=== PATIENT | female | born 1940 ===

== ENCOUNTER 2016-11-02 06:17 | Inpatient (IN) | payer MEDICARE, OTHER ==
[2016-11-02 07:09] LABS: Hematocrit 38 % (35-47); Hemoglobin 12.8 g/dl (12.0-16.0); Mean Corpuscular HGB Conc 34 g/dl (31-36); Mean Corpuscular Hemoglobin 32 pg (27-31); Mean Corpuscular Volume 95 fL (80-97); Mean Platelet Volume 10 um3 (7.4-10.4); Red Blood Count 4.03 10^6/ul (4.0-5.4); Red Cell Distribution Width 14 % (10.5-15); White Blood Count 9.8 10^3/ul (3.5-10.8)
--- NOTE | 2016-11-02 07:22 | RAD ---
INDICATION: Short of breath COMPARISON: None TECHNIQUE: An AP portable view obtained at 0700 hours is submitted. FINDINGS: Bones/Soft Tissues: There are no acute bony findings. Cardiomediastinal: The heart is normal in size. Central pulmonary vessels and interstitium are prominent compatible with moderate vascular congestion.. Lungs: No focal consolidative changes. Given the diffuse essential change, coexistent infiltrates would be difficult to exclude.. Pleura: Small bilateral pleural effusions.. Other: None IMPRESSION: MODERATE VASCULAR CONGESTION.
[2016-11-02] MEDS ORDERED: Albuterol/Ipratropium NEB.SOL* Albuterol 2.5 MG/Ipratropium 0.5 MG 3 ML INH ONE (07:24)
[2016-11-02] MEDS ORDERED: Furosemide IV* 10 MG/ML 10 ML VIAL (100 MG) IV ONE (07:24)
[2016-11-02 07:25] LABS: BUN/Creatinine Ratio 16.9 (8-20); C Reactive Protein 1.45 mg/L (< 5.00); Calcium 9.3 mg/dL (8.6-10.3); EGFR African American 46.3 (>60); Globulin 3.1 g/dL (2-4); Total Bilirubin 0.7 mg/dL (0.2-1.0); Total Protein 7.1 g/dL (6.4-8.9)
[2016-11-02 07:27] LABS: Troponin I 0.01 ng/mL (<0.04)
[2016-11-02 07:55] LABS: TSH (Thyroid Stimulating Horm) 0.73 mcIU/mL (0.34-5.60)
[2016-11-02 08:10] LABS: Urine Bacteria Absent (Absent); Urine Bilirubin Negative (Negative); Urine Glucose Negative (Negative); Urine Nitrite Negative (Negative)
--- NOTE | 2016-11-02 12:26 | ED ---
Dayday Edwards Matthew, scribed for José Jcaobs MD on 11/02/16 at 0720 . Shortness of Breath - HPI Summary HPI Summary: A 75 y/o female presents to the ED with gradually worsening SOB since 2 days ago. Associated symptoms include productive cough, wheezing, inability to sleep , rhinorrhea, sore throat, diaphoresis, and decreased appetite. The patient denies recent travel, rashes, headache, chest pain, palpitations, vomiting, diarrhea, and Abx in the last 6 months. The SOB worsens with the patient lays flat and with exertion. The patient is only able to ambulate a few feet before becoming SOB, and has been this way for the past year. The patient is not on home oxygen. She is on on blood thinner for an irregular rhythm. Hx of HTN. No Hx of asthma, diabetes, or CHF. - History of Current Complaint Chief Complaint: EDShortnessOfBreath Time Seen by Provider: 11/02/16 06:25 Hx Obtained From: Patient Onset/Duration: Gradual Onset, Lasting Days - 2, Still Present Timing: Constant Current Severity: Moderate Dyspnea At: Rest Aggrevating Factors: Movement Alleviating Factors: Oxygen Associated Signs & Symptoms: Cough (Productive), Wheezing, Diaphoresis - Allergy/Home Medications Allergies/Adverse Reactions: Allergies Allergy/AdvReac Type Severity Reaction Status Date / Time No Known Allergies Allergy Verified 11/02/16 06:34 Home Medications: Home Medications Apixaban* [Eliquis*] 5 mg PO BID 11/02/16 [History Confirmed 11/02/16] Metoprolol Tartrate TAB* [Lopressor TAB*] 100 mg PO BID 11/02/16 [History Confirmed 11/02/16] amLODIPine TAB* [Norvasc TAB*] 5 mg PO DAILY 11/02/16 [History Confirmed ] PMH/Surg Hx/FS Hx/Imm Hx Cardiovascular History: Reports: Hx Atrial Fibrillation, Hx Hypertension Infectious Disease History: No Infectious Disease History: Denies: Traveled Outside the [place] in Last 30 Days - Family History Known Family History: Positive: Hypertension Negative: Diabetes - Social History Lives: With Family Alcohol Use: None Hx Substance Use: No Substance Use Type: Reports: None Hx Tobacco Use: No Smoking Status (MU): Never Smoked Tobacco Review of Systems Constitutional: Other - inability to sleep; decreased appetite Positive: Skin Diaphoresis Eyes: Negative Positive: Sore Throat, Nasal Discharge Cardiovascular: Negative Negative: Chest Pain Positive: Shortness Of Breath, Cough - productive , Other - Wheezing Gastrointestinal: Negative Negative: Abdominal Pain, Vomiting, Diarrhea, Nausea Genitourinary: Negative Positive: no symptoms reported Musculoskeletal: Negative Skin: Negative Neurological: Negative Negative: Headache Psychological: Normal All Other Systems Reviewed And Are Negative: Yes Physical Exam - Summary Physical Exam Summary: The patient is ill apperaing, obese, and respiratory distress. The skin is warm and dry w/ decreased skin turgor. HEENT: The head is normocephalic and atraumatic. The pupils are equal and reactive. The conjunctivae are clear and without drainage. Nares are patent and without drainage. Mouth reveals dry mucous membranes and the throat is without erythema and exudate. The external ears are intact. The ear canals are patent and without drainage. The tympanic membranes are intact. There is no sinus tenderness to palpation. Neck is supple with full range of motion and non-tender. There are no carotid bruits. There is no neck vein distension. Respiratory: Chest is non-tender. The patient has diffuse wheezing and rhonchi. She also has rales in the left base. Cardiovascular: Heart is regular rate and irregular rhythm. There is no murmur or rub auscultated. There is pitting edema of the LE and pulses are symmetrical and equal. Abdomen: The abdomen is soft and non-tender. There are normal bowel sounds heard in all four quadrants and there is no organomegaly palpated. Musculoskeletal: There is no back pain noted. Extremities are non-tender with full range of motion. There is good capillary refill. There is no calf tenderness elicited.The patient has pitting edema of the LE. Neurological: Patient is alert and oriented to person, place and time. The patient has symmetrical motor strength in all four extremities. Cranial nerves are grossly intact. Deep tendon reflexes are symmetrical and equal in all four extremities. Psychiatric: The patient has an appropriate affect and does not exhibit any anxiety or depression. Triage Information Reviewed: Yes Vital Signs On Initial Exam: Initial Vitals BP 165/52 11/02/16 06:31 Temp Pulse Resp BP Pulse Ox 97.5 F 58 20 140/50 92 11/02/16 07:14 11/02/16 07:14 11/02/16 07:14 11/02/16 07:14 11/02/16 07:14 Vital Signs Reviewed: Yes Diagnostics - Vital Signs Vital Signs Temp Pulse Resp BP Pulse Ox 11/02/16 07:00 59 24 140/50 91 11/02/16 06:34 97.6 F 63 26 165/52 92 11/02/16 06:32 61 20 91 11/02/16 06:31 165/52 - Laboratory Lab Results: Lab Results 11/02/16 11/02/16 11/02/16 Range/Units 06:55 06:55 06:55 WBC 9.8 (3.5-10.8) 10^3/ul RBC 4.03 (4.0-5.4) 10^6/ul Hgb 12.8 (12.0-16.0) g/dl Hct 38 (35-47) % MCV 95 (80-97) fL MCH 32 H (27-31) pg MCHC 34 (31-36) g/dl RDW 14 (10.5-15) % Plt Count 203 (150-450) 10^3/ul MPV 10 (7.4-10.4) um3 Neut % (Auto) 89.1 H (38-83) % Lymph % (Auto) 6.6 L (25-47) % Sierra % (Auto) 3.8 (1-9) % Eos % (Auto) 0.1 (0-6) % Baso % (Auto) 0.4 (0-2) % Absolute Neuts (auto) 8.7 H (1.5-7.7) 10^3/ul Absolute Lymphs (auto) 0.6 L (1.0-4.8) 10^3/ul Absolute Monos (auto) 0.4 (0-0.8) 10^3/ul Absolute Eos (auto) 0 (0-0.6) 10^3/ul Absolute Basos (auto) 0 (0-0.2) 10^3/ul Absolute Nucleated RBC 0 10^3/ul Nucleated RBC % 0 INR (Anticoag Therapy) 1.74 H (0.89-1.11) APTT 29.3 (26.0-36.3) seconds D-Dimer, Quantitative 517 H (Less Than 230) ng/mL Sodium 142 (133-145) mmol/L Potassium 4.0 (3.5-5.0) mmol/L Chloride 108 (101-111) mmol/L Carbon Dioxide 24 (22-32) mmol/L Anion Gap 10 (2-11) mmol/L BUN 24 (6-24) mg/dL Creatinine 1.42 H (0.51-0.95) mg/dL Est GFR ( Amer) 46.3 (>60) Est GFR (Non-Af Amer) 36.0 (>60) BUN/Creatinine Ratio 16.9 (8-20) Glucose 137 H (70-100) mg/dL Lactic Acid (0.5-2.0) mmol/L Calcium 9.3 (8.6-10.3) mg/dL Magnesium 2.0 (1.9-2.7) mg/dL Total Bilirubin 0.70 (0.2-1.0) mg/dL AST 72 H (13-39) U/L ALT 112 H (7-52) U/L Alkaline Phosphatase 85 (34-104) U/L Total Creatine Kinase 66 (10-223) U/L CK-MB (CK-2) 3.9 (0.6-6.3) ng/mL Troponin I 0.01 (<0.04) ng/mL C-Reactive Protein 1.45 (< 5.00) mg/L B-Natriuretic Peptide ( - 100) pg/mL Total Protein 7.1 (6.4-8.9) g/dL Albumin 4.0 (3.2-5.2) g/dL Globulin 3.1 (2-4) g/dL Albumin/Globulin Ratio 1.3 (1-3) Lipase 10 L (11.0-82.0) U/L Procalcitonin (<0.6) ng/mL TSH 0.73 (0.34-5.60) mcIU/mL Urine Color Urine Appearance Urine pH (5-9) Ur Specific [place] (1.010-1.030) Urine Protein (Negative) Urine Ketones (Negative) Urine Blood (Negative) Urine Nitrate (Negative) Urine Bilirubin (Negative) Urine Urobilinogen (Negative) Ur Leukocyte Esterase (Negative) Urine WBC (Auto) (Absent) Urine RBC (Auto) (Absent) Ur Squamous Epith Cells (Absent) Urine Bacteria (Absent) Hyaline Casts (Absent) Urine Glucose (Negative) 11/02/16 11/02/16 11/02/16 Range/Units 06:55 06:55 06:55 WBC (3.5-10.8) 10^3/ul RBC (4.0-5.4) 10^6/ul Hgb (12.0-16.0) g/dl Hct (35-47) % MCV (80-97) fL MCH (27-31) pg MCHC (31-36) g/dl RDW (10.5-15) % Plt Count (150-450) 10^3/ul MPV (7.4-10.4) um3 Neut % (Auto) (38-83) % Lymph % (Auto) (25-47) % Sierra % (Auto) (1-9) % Eos % (Auto) (0-6) % Baso % (Auto) (0-2) % Absolute Neuts (auto) (1.5-7.7) 10^3/ul Absolute Lymphs (auto) (1.0-4.8) 10^3/ul Absolute Monos (auto) (0-0.8) 10^3/ul Absolute Eos (auto) (0-0.6) 10^3/ul Absolute Basos (auto) (0-0.2) 10^3/ul Absolute Nucleated RBC 10^3/ul Nucleated RBC % INR (Anticoag Therapy) (0.89-1.11) APTT (26.0-36.3) seconds D-Dimer, Quantitative (Less Than 230) ng/mL Sodium (133-145) mmol/L Potassium (3.5-5.0) mmol/L Chloride (101-111) mmol/L Carbon Dioxide (22-32) mmol/L Anion Gap (2-11) mmol/L BUN (6-24) mg/dL Creatinine (0.51-0.95) mg/dL Est GFR ( Amer) (>60) Est GFR (Non-Af Amer) (>60) BUN/Creatinine Ratio (8-20) Glucose (70-100) mg/dL Lactic Acid 1.9 (0.5-2.0) mmol/L Calcium (8.6-10.3) mg/dL Magnesium (1.9-2.7) mg/dL Total Bilirubin (0.2-1.0) mg/dL AST (13-39) U/L ALT (7-52) U/L Alkaline Phosphatase (34-104) U/L Total Creatine Kinase (10-223) U/L CK-MB (CK-2) (0.6-6.3) ng/mL Troponin I (<0.04) ng/mL C-Reactive Protein (< 5.00) mg/L B-Natriuretic Peptide 620 H ( - 100) pg/mL Total Protein (6.4-8.9) g/dL Albumin (3.2-5.2) g/dL Globulin (2-4) g/dL Albumin/Globulin Ratio (1-3) Lipase (11.0-82.0) U/L Procalcitonin < 0.1 (<0.6) ng/mL TSH (0.34-5.60) mcIU/mL Urine Color Urine Appearance Urine pH (5-9) Ur Specific [place] (1.010-1.030) Urine Protein (Negative) Urine Ketones (Negative) Urine Blood (Negative) Urine Nitrate (Negative) Urine Bilirubin (Negative) Urine Urobilinogen (Negative) Ur Leukocyte Esterase (Negative) Urine WBC (Auto) (Absent) Urine RBC (Auto) (Absent) Ur Squamous Epith Cells (Absent) Urine Bacteria (Absent) Hyaline Casts (Absent) Urine Glucose (Negative) 11/02/16 Range/Units 08:00 WBC (3.5-10.8) 10^3/ul RBC (4.0-5.4) 10^6/ul Hgb (12.0-16.0) g/dl Hct (35-47) % MCV (80-97) fL MCH (27-31) pg MCHC (31-36) g/dl RDW (10.5-15) % Plt Count (150-450) 10^3/ul MPV (7.4-10.4) um3 Neut % (Auto) (38-83) % Lymph % (Auto) (25-47) % Sierra % (Auto) (1-9) % Eos % (Auto) (0-6) % Baso % (Auto) (0-2) % Absolute Neuts (auto) (1.5-7.7) 10^3/ul Absolute Lymphs (auto) (1.0-4.8) 10^3/ul Absolute Monos (auto) (0-0.8) 10^3/ul Absolute Eos (auto) (0-0.6) 10^3/ul Absolute Basos (auto) (0-0.2) 10^3/ul Absolute Nucleated RBC 10^3/ul Nucleated RBC % INR (Anticoag Therapy) (0.89-1.11) APTT (26.0-36.3) seconds D-Dimer, Quantitative (Less Than 230) ng/mL Sodium (133-145) mmol/L Potassium (3.5-5.0) mmol/L Chloride (101-111) mmol/L Carbon Dioxide (22-32) mmol/L Anion Gap (2-11) mmol/L BUN (6-24) mg/dL Creatinine (0.51-0.95) mg/dL Est GFR ( Amer) (>60) Est GFR (Non-Af Amer) (>60) BUN/Creatinine Ratio (8-20) Glucose (70-100) mg/dL Lactic Acid (0.5-2.0) mmol/L Calcium (8.6-10.3) mg/dL Magnesium (1.9-2.7) mg/dL Total Bilirubin (0.2-1.0) mg/dL AST (13-39) U/L ALT (7-52) U/L Alkaline Phosphatase (34-104) U/L Total Creatine Kinase (10-223) U/L CK-MB (CK-2) (0.6-6.3) ng/mL Troponin I (<0.04) ng/mL C-Reactive Protein (< 5.00) mg/L B-Natriuretic Peptide ( - 100) pg/mL Total Protein (6.4-8.9) g/dL Albumin (3.2-5.2) g/dL Globulin (2-4) g/dL Albumin/Globulin Ratio (1-3) Lipase (11.0-82.0) U/L Procalcitonin (<0.6) ng/mL TSH (0.34-5.60) mcIU/mL Urine Color Yellow Urine Appearance Clear Urine pH 5.0 (5-9) Ur Specific [place] 1.010 (1.010-1.030) Urine Protein 1+(30 mg/dl) H (Negative) Urine Ketones Negative (Negative) Urine Blood Negative (Negative) Urine Nitrate Negative (Negative) Urine Bilirubin Negative (Negative) Urine Urobilinogen Negative (Negative) Ur Leukocyte Esterase Negative (Negative) Urine WBC (Auto) Absent (Absent) Urine RBC (Auto) Absent (Absent) Ur Squamous Epith Cells Present H (Absent) Urine Bacteria Absent (Absent) Hyaline Casts Present H (Absent) Urine Glucose Negative (Negative) Result Diagrams: 11/02/16 06:55 11/02/16 06:55 Lab Statement: Any lab studies that have been ordered have been reviewed, and results considered in the medical decision making process. - Radiology CXR Xray Interpretation: Positive (See Comments) - IMPRESSION: MODERATE VASCULAR CONGESTION. Radiology Interpretation Completed By: Radiologist - EKG 06:37 Cardiac Rate: Bradycardia - 58 bpm EKG Rhythm: Sinus Bradycardia ST Segment: Non-Specific EKG Interpretation: Normal [place] Course/Dx - Course Assessment/Plan: A 75 y/o female presents to the ED with SOB, orthopnoea, and dyspnea on exertion. The concern was pneumonia, CHF, bronchitis, OR, AFib with RVR. Exam, labs, and CXR were consistent with new onset CHF. The patient was given 80 of Lasix and one breathing treatment. The hospitalist was consulted and agrees to admit the patient. 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 - Diagnoses Differential Diagnosis/HQI/PQRI: Positive: Asthma, Bronchitis, CHF, OR, Pneumonia Provider Diagnoses: Acute dyspnea, Pulmonary edema - Physician Notifications Discussed Care of Patient With: Dr. Marcelo (Hospitalist) at 08:23 -- Notified of patient's history and will admit the patient. Social work consulted. Discharge - Discharge Plan Condition: Stable Disposition: ADMITTED TO [facility] The documentation as recorded by the Dayday carter Matthew accurately reflects the service I personally performed and the decisions made by , José Jacobs MD.
--- NOTE | 2016-11-02 15:48 | HP ---
ADMISSION HISTORY AND PHYSICAL: DATE OF ADMISSION: 11/02/16 PRIMARY CARE PROVIDER: Dr. Montaño in [place]. [employer]LE ETL DEVELOPER: Dr. Theodore. HEALTHCARE PROXY: Oscar, her brother. CODE STATUS: DNR. MOLST filled out. SOURCE OF INFORMATION: History obtained from interview with the patient and discussion with Dr. Theodore. CHIEF COMPLAINT: Shortness of breath. HISTORY OF PRESENT ILLNESS: This is a 75-year-old female, past medical history of diastolic congestive heart failure with preserved ejection fraction, last checked in May of 2015, with associated moderate aortic insufficiency and mitral regurgitation; obstructive sleep apnea, that is untreated; as well as hypertension; diagnosed with new atrial fibrillation approximately 2 weeks prior on the [address] Theodore, had been increasing her metoprolol as an outpatient as well as started her newly on Eliquis. The patient was not entirely compliant with her followup visits; however, was thought to be in very mild CHF prior, thought to be in the setting of rapid rate when she was diagnosed with atrial fibrillation. She found that over the last 2 days, prior to her scheduled followup today with Dr. Theodore, she had increasing dyspnea on exertion, found it difficult to sleep at night. She is still able to walk up from the basement, carry wood to stoke the fire. Last night, she felt increasingly short of breath and she also felt confused as if she heard her brother who does live with her, although he was not speaking to her. She noted cough increasing over 2 weeks, productive of phlegm, with no fevers or chills. No lower extremity edema. Last night, she did experience PND with severe shortness of breath and increasing diaphoresis. This morning, she felt so short of breath that she activated EMS, found it difficult to walk to the ambulance, which was severely decreased exercise tolerance for this patient. She does note she drinks a lot of water and does not adhere to a low- salt diet. In the emergency room, she was thought as been in acute decompensated heart failure exacerbation, received Lasix 80 mg IV once with diuresis of 1150 cc of urine. When seen by this author, she still required 2 L of oxygen to maintain a saturation greater than 89%, although felt much improved since presentation. She denies any associated chest pain, nausea, vomiting, lightheadedness, palpitations during the course of the last several days until current. PAST MEDICAL HISTORY: Includes a recent left retinal artery branch occlusion; new atrial fibrillation, now on Eliquis; diastolic heart failure with preserved ejection fraction, moderate AI, moderate MR; suspected JERRELL; hypertension. MEDICATIONS: Home medications: 1. Metoprolol 100 mg twice daily. 2. Amlodipine 5 mg daily. 3. Eliquis 5 mg twice daily. ALLERGIES: No known drug allergies. FAMILY HISTORY: Brother with atrial fibrillation. SOCIAL HISTORY: No tobacco, alcohol, or illicit's. REVIEW OF SYSTEMS: As per HPI, otherwise all other systems are negative. PHYSICAL EXAMINATION GENERAL: Older than stated age, sitting up in bed, interactive, talks in full sentences. VITAL SIGNS: When seen by this author, 140/47; heart rate 67; respiratory rate is 16; T-max in the emergency room 97.5; 90% on room air, increased to 94% on 2 L. HEENT: Oropharynx is clear. Has dry mucous membranes. Sclerae anicteric. NECK: Nonelevated JVD. No cervical or supraclavicular lymphadenopathy. LUNGS: She has rales in bilateral bases extending up less than a quarter to the apex. HEART: She has an irregularly irregular heart rhythm with a regular heart rate with indiscernible murmur. ABDOMEN: Soft, nontender, and nondistended. Positive bowel sounds. EXTREMITIES: Warm and well-perfused. She has trace lower extremity edema bilaterally. Less than 2-second capillary refill with good skin turgor. NEUROLOGIC: She is alert and oriented x3. Cranial nerves are intact. DIAGNOSTIC STUDIES/LAB DATA: Labs reviewed notable for a creatinine of 1.4. AST 72, ALT 112. BNP 620. Troponin I 0.01. CRP 1.45. TSH 0.73. D-dimer 517. INR 1.74. White blood cell count 9.8, hemoglobin 12.8, platelets 203. Urine is notable for 1+ protein, squamous epithelial cells, and hyaline casts. Chest x-ray, impression: Moderate vascular congestion. EKG: Atrial fibrillation, ventricular rate of 58, normal limit axis, normal R- wave progression, no ST or T-wave changes. ASSESSMENT AND PLAN: This is a 75-year-old female, new diagnosis of atrial fibrillation with associated left retinal artery branch occlusion, now on Eliquis and metoprolol with good rate control, thought to be in mild heart failure exacerbation as an outpatient, not treated with diuretics in preference of rate control first, now presenting with increasing vascular congestion and decompensated diastolic heart failure exacerbation in the setting of new atrial fibrillation, water intake, and dietary noncompliance. 1. Shortness of breath. Suspect diastolic heart failure exacerbation. Remains in atrial fibrillation, although rate controlled. I did discuss her care with Dr. Theodore. The first thought is for cardioversion, although did indicate if still needed after diuresis, he will follow and cardiovert if needed. His preference in terms of diuretics on discharge would be torsemide with the addition of spironolactone. I have discontinued the patient's amlodipine and will start spironolactone tomorrow. She received 80 mg of IV Lasix today. I will hold additional Lasix, dose Lasix IV 40 mg in the morning. Check BMP for potassium as well as renal function. Plan on transthoracic echocardiogram to evaluate cardiac function. We will also check one additional troponin to rule out acute coronary syndrome in the setting of decompensated heart failure. Low suspicion for pulmonary embolism in the setting of Eliquis initiation. 2. Hypertension. Continue metoprolol. Transition amlodipine to spironolactone. 3. Atrial fibrillation, on Eliquis, rate controlled on metoprolol. Continue both. 4. Elevated creatinine, unsure if chronic or acute. Trend while receiving diuretics. I have requested records from Dr. Theodore's office. 5. Social situation. The patient cares for her elderly brother at home, was originally hesitant to be admitted to the hospital, although in consultation with Social Work has agreed to stay. Attention should be paid to early as possible discharge as is standard of care __as__ the patient is anxious to leave to resume the care of her brother. Social service has arranged Adult Protective Services to check in and assure his safety. 6. DVT prophylaxis, with Eliquis. 7. Code status is DNR. MOLST is completed and placed in chart. CC: Dr. Montaño; Dr. Theodore * [id number]/CPS #: [id number] MTDD
[2016-11-02] MEDS: Metoprolol Tartrate TAB* 50 mg PO SCH (20:52)
[2016-11-02] MEDS: Apixaban* 5 MG TAB PO SCH (20:52)
[2016-11-03 06:39] LABS: Hematocrit 36 % (35-47); Hemoglobin 11.9 g/dl (12.0-16.0); Mean Corpuscular HGB Conc 33 g/dl (31-36); Mean Corpuscular Hemoglobin 31 pg (27-31); Mean Corpuscular Volume 94 fL (80-97); Mean Platelet Volume 10 um3 (7.4-10.4); Red Blood Count 3.84 10^6/ul (4.0-5.4); Red Cell Distribution Width 14 % (10.5-15)
[2016-11-03 06:49] LABS: BUN/Creatinine Ratio 17.6 (8-20); Calcium 9.1 mg/dL (8.6-10.3); EGFR African American 46.3 (>60); Potassium 3.5 mmol/L (3.5-5.0)
[2016-11-03] MEDS: Furosemide IV* 10 MG/ML VIAL (40 MG) IV SCH (08:47)
[2016-11-03] MEDS: Apixaban* 5 MG TAB PO SCH ×2 (08:47→22:17)
[2016-11-03] MEDS: Spironolactone TAB* 25 MG PO SCH (08:47)
[2016-11-03] MEDS: Metoprolol Tartrate TAB* 50 mg PO SCH ×2 (11:04→22:17)
--- NOTE | 2016-11-03 13:18 | PN ---
Subjective Date of Service: 11/03/16 Interval History: Patient seen this morning. Says she is feeling improved from yesterday. Breathing and exercise tolerance are improved but not back to baseline. Still requiring O2. Has been urinating quite a bit. No chest pain. Anxious to get home but understands needs to be feeling better in order to take care of her brother. Family History: Unchanged from Admission Social History: Unchanged from Admission Past Medical History: Unchanged from Admission Objective Active Medications: Apixaban (Eliquis*) 5 mg PO BID [facility] Last Admin: 11/03/16 08:47 Dose: 5 mg Furosemide (Lasix Iv*) 40 mg IV DAILY [facility] Last Admin: 11/03/16 08:47 Dose: 40 mg Metoprolol Tartrate (Lopressor Tab*) 100 mg PO BID [facility] Last Admin: 11/03/16 11:04 Dose: 100 mg Spironolactone (Aldactone Tab*) 25 mg PO DAILY [facility] Last Admin: 11/03/16 08:47 Dose: 25 mg Vital Signs 11/02/16 11/02/16 11/02/16 14:47 15:12 19:21 Temperature 97.8 F 98.1 F 98.2 F Pulse Rate 66 70 71 Respiratory 21 18 18 Rate Blood Pressure 147/61 140/56 98/33 (mmHg) O2 Sat by Pulse 94 95 93 Oximetry 11/02/16 11/02/16 11/02/16 19:27 19:34 23:52 Temperature 98.9 F Pulse Rate 61 Respiratory 18 16 Rate Blood Pressure 110/40 105/43 (mmHg) O2 Sat by Pulse 93 Oximetry 11/03/16 11/03/16 11/03/16 00:35 03:54 07:58 Temperature 98.6 F 98.7 F Pulse Rate 57 57 Respiratory 16 16 16 Rate Blood Pressure 115/40 138/51 (mmHg) O2 Sat by Pulse 98 97 Oximetry 11/03/16 11/03/16 09:05 11:01 Temperature 99.1 F Pulse Rate 60 Respiratory 22 Rate Blood Pressure 134/46 (mmHg) O2 Sat by Pulse 92 95 Oximetry Oxygen Devices in Use Now: Nasal Cannula Appearance: Elderly, F, laying in bed in NAD Eyes: No Scleral Icterus Ears/Nose/Mouth/Throat: Mucous Membranes Moist Neck: NL Appearance and Movements; NL JVP Respiratory: Symmetrical Chest Expansion and Respiratory Effort, - - trace bibasilar rales Cardiovascular: RRR, - - JVP 8-9 cm Abdominal: NL Sounds; No Tenderness; No Distention Lymphatic: No Cervical Adenopathy Extremities: No Edema Skin: No Rash or Ulcers Neurological: Alert and Oriented x 3 Result Diagrams: 11/03/16 06:16 11/03/16 06:16 Assess/Plan/Problems-Billing Assessment: Acute on chronic diastolic CHF exacerbation in a 75 yo F with hx of HFpEF, HTN, AFib on AC, recent L retinal artery branch occlusion - Patient Problems (1) Acute on chronic diastolic (congestive) heart failure Current Visit: Yes Comment: Symptoms improving, received 40 mg IV Lasix this AM, tract output. Wean O2. Echo pending. Continue spironolactone. (2) Afib Current Visit: Yes Comment: Continue metoprolol and eliquis (3) HTN (hypertension) Current Visit: Yes Comment: Medications as above (4) DVT prophylaxis Current Visit: Yes Comment: Eliquis (5) DNR (do not resuscitate) Current Visit: Yes
--- NOTE | 2016-11-03 16:49 | ECHO ---
Patient: SHEREE SOUSA [facility] Rec#: [id number] : 1940 Date: 11/03/2016 Age: 75y Height: 165.1 cm / 65.0 in Weight: 95.25 kg / 209.9 lbs Sex: F BSA: 2.02 Room#: 443 Admit Date#: 11/02/2016 Type: Inpatient Referring: Emmanuel Marcelo MD Reading: Eduardo Montilla DO Hot Stamp Operator: Emy Vega [facility] Transthoracic Echocardiogram Indication: CHF BP: 115/40 HR: 81 Rhythm: A-Fib Findings History: Current CXR with moderate vascular congestion, diastolic CHF,JERRELL,HTN,a-fib. Technical Comments: The study is technically limited due to patient body habitus. COmpleted at 1450. Left Ventricle: The left ventricular chamber size is normal. Mild concentric left ventricular hypertrophy is observed. Global left ventricular wall motion and contractility are within normal limits. There is normal left ventricular systolic function. The estimated ejection fraction is 55-60%. The assessment of diastolic function is non-diagnostic. Left Atrium: The left atrium is moderate to severely dilated. Right Ventricle: The right ventricular chamber size and systolic function are within normal limits. Right Atrium: The right atrium is mildly dilated. Aortic Valve: The aortic valve is trileaflet. There is mild to moderate aortic regurgitation. There is no evidence of aortic stenosis. Mitral Valve: Moderate mitral annular calcification present. The mitral valve leaflets are mildly thickened. There is mild to moderate mitral regurgitation. There is borderline mitral stenosis. Tricuspid Valve: The tricuspid valve leaflets are normal. There is mild tricuspid regurgitation. No pulmonary hypertension is noted. There is no tricuspid stenosis. Pulmonic Valve: The pulmonic valve structure is not well visualized. There is mild pulmonic regurgitation. There is no pulmonic stenosis. Pericardium: There is no significant pericardial effusion. Aorta: There is no dilatation of the ascending aorta. There is no dilatation of the aortic arch. There is mild dilatation of the aortic root. Pulmonary Artery: The main pulmonary artery appears normal. Venous: The venous system is not well visualized. Conclusions The left ventricular chamber size is normal. Mild concentric left ventricular hypertrophy is observed. There is normal left ventricular systolic function with an estimated LVEF of 55-60%. The left atrium is moderate to severely dilated. The right ventricular chamber size and systolic function are within normal limits. There is mild to moderate aortic regurgitation, more consistent with mild. Moderate mitral annular calcification present. There is mild to moderate mitral regurgitation. No pulmonary hypertension is noted although this may be underestimated. No prior studies available for comparison at time of interpretation Measurements Name Value Normal Range RVIDd (AP) 2D 3.2 cm (0.9 - 2.6) RVDdMajor (2D) 3.6 cm (2.2 - 4.4) RAd ISD 4CH 5.3 cm (3.4 - 4.9) RA (A4C)W 4.1 cm (2.9 - 4.6) IVSd (2D) 1.1 cm (0.6 - 1) LVPWd (2D) 1.1 cm (0.6 - 1) LVIDd (2D) 5.3 cm (3.6 - 5.4) LVIDs (2D) 3 cm - LV FS (2D) 42 % (25 - 45) Aortic Annulus 2.1 cm (1.4 - 2.6) Ao root diameter (2D) 3.7 cm (2.1 - 3.5) Ascending Ao 3.2 cm (2.1 - 3.4) Aortic arch 2.2 cm (1.8 - 3.4) Descending Ao 0.5 cm - LA dimension (AP) 2D 6.3 cm (2.3 - 3.8) LAd ISD 4CH 7.6 cm (2.9 - 5.3) LA ISD 4CH W 5.2 cm (2.5 - 4.5) Name Value Normal Range LA ESV SP 4CH (A/L) 154 ml - LA ESV SP 2CH (A/L) 168 ml - LA ESV BP (A/L) 166 ml - LA ESV BP (A/L) index 82.22 ml/m2 - LA ESV SP 4CH (MOD) 146 ml - LA ESV SP 2CH (MOD) 162 ml - Name Value Normal Range MV E-wave Vmax 1.5 m/sec - MV deceleration time 253 msec - LV septal e' Vmax 0.05 m/sec - LV lateral e' Vmax 0.1 m/sec - LV E:e' septal ratio 30 ratio - LV E:e' lateral ratio 15 ratio - Name Value Normal Range AV Vmax 1.8 m/sec - AV VTI 40.5 cm - AV peak gradient 12.43 mmHg - AV mean gradient 5.48 mmHg - LVOT diameter 2 cm - LVOT Vmax 1 m/sec - LVOT VTI 24 cm - LVOT peak gradient 4.26 mmHg - LVOT mean gradient 1.94 mmHg - SV LVOT 78 ml - AR PHT 345 msec - AR peak gradient 77.48 mmHg - Name Value Normal Range MV Vmax 1.5 m/sec - MV VTI 32.7 cm - MV peak gradient 8.76 mmHg - MV mean gradient 2.43 mmHg - MV PHT 73 msec - MVA (PHT) 3 cm2 - MVA (continuity VTI) 2.4 cm2 - Name Value Normal Range TR Vmax 2.5 m/sec - TR peak gradient 24 mmHg - RAP 8 mmHg - RVSP 32 mmHg - Name Value Normal Range PV Vmax 0.6 m/sec - PV peak gradient 1.69 mmHg -
[2016-11-04] MEDS: Spironolactone TAB* 25 MG PO SCH (09:36)
[2016-11-04] MEDS: Furosemide IV* 10 MG/ML VIAL (40 MG) IV SCH (09:36)
[2016-11-04] MEDS: Metoprolol Tartrate TAB* 50 mg PO SCH ×2 (09:36→21:28)
[2016-11-04] MEDS: Apixaban* 5 MG TAB PO SCH ×2 (09:37→21:28)
[2016-11-04 10:14] LABS: BUN/Creatinine Ratio 19.7 (8-20); Calcium 9.3 mg/dL (8.6-10.3); EGFR African American 50.3 (>60); EGFR Non-African American 39.1 (>60); Potassium 3.5 mmol/L (3.5-5.0)
--- NOTE | 2016-11-04 12:36 | PN ---
Subjective Date of Service: 11/04/16 Interval History: Patient seen this morning. Reports no SOB. Has been urinating frequently this morning. No trouble ambulating. O2 weaned to 1L. Patient does not want to be discharged with oxygen. Family History: Unchanged from Admission Social History: Unchanged from Admission Past Medical History: Unchanged from Admission Objective Active Medications: Apixaban (Eliquis*) 5 mg PO BID [facility] Last Admin: 11/04/16 09:37 Dose: 5 mg Furosemide (Lasix Iv*) 40 mg IV DAILY [facility] Last Admin: 11/04/16 09:36 Dose: 40 mg Metoprolol Tartrate (Lopressor Tab*) 100 mg PO BID [facility] Last Admin: 11/04/16 09:36 Dose: 100 mg Spironolactone (Aldactone Tab*) 25 mg PO DAILY [facility] Last Admin: 11/04/16 09:36 Dose: 25 mg Vital Signs 11/03/16 11/03/16 11/03/16 19:35 20:00 23:31 Temperature 97.7 F 98.8 F Pulse Rate 53 51 Respiratory 16 16 16 Rate Blood Pressure 133/51 100/34 (mmHg) O2 Sat by Pulse 93 93 Oximetry 11/04/16 11/04/16 11/04/16 02:50 04:20 07:23 Temperature 98.7 F 97.9 F Pulse Rate 56 58 Respiratory 16 16 Rate Blood Pressure 135/45 125/33 (mmHg) O2 Sat by Pulse 93 93 93 Oximetry 11/04/16 11/04/16 09:34 09:48 Temperature Pulse Rate 62 Respiratory Rate Blood Pressure (mmHg) O2 Sat by Pulse 93 Oximetry Oxygen Devices in Use Now: Nasal Cannula - 1L Appearance: Elderly, F, sitting in chair in NAD Eyes: No Scleral Icterus Ears/Nose/Mouth/Throat: Mucous Membranes Moist Neck: NL Appearance and Movements; NL JVP Respiratory: Symmetrical Chest Expansion and Respiratory Effort, Clear to Auscultation Cardiovascular: NL Sounds; No Murmurs; No JVD, RRR Abdominal: NL Sounds; No Tenderness; No Distention Lymphatic: No Cervical Adenopathy Extremities: No Edema Skin: No Rash or Ulcers Neurological: Alert and Oriented x 3 Result Diagrams: 11/03/16 06:16 11/04/16 09:51 Additional Lab and Data: Assess/Plan/Problems-Billing Assessment: Acute on chronic diastolic CHF exacerbation in a 75 yo F with hx of HFpEF, HTN, AFib on AC, recent L retinal artery branch occlusion - Patient Problems (1) Acute on chronic diastolic (congestive) heart failure Current Visit: Yes Comment: Continues to improve clinically. Received Lasix 40 mg IV this AM. Will attempt to wean off O2 (only on 1L) and check ambulatory O2 once off. Continue spironolactone. Echo relatively unremarkable, EF preserved. (2) Afib Current Visit: Yes Comment: Continue metoprolol (HR in 50s-60s but seems stable) and eliquis (3) HTN (hypertension) Current Visit: Yes Comment: Medications as above (4) DVT prophylaxis Current Visit: Yes Comment: Eliquis (5) DNR (do not resuscitate) Current Visit: Yes Status and Disposition: Discharge pending weaning of O2, today vs tomorrow
[2016-11-04] MEDS ORDERED: Furosemide IV* 10 MG/ML 10 ML VIAL (100 MG) IV ONE (19:45)
[2016-11-04] MEDS ORDERED: Metoprolol Tartrate IV* 1 MG/ML 5 ML VIAL IV ONE (21:13)
[2016-11-04] MEDS ORDERED: Diltiazem IV VIAL* 125 MG in NS 0.9% 100 ML* 100 ML IVPB SCH (23:45)
[2016-11-04] MEDS ORDERED: Diltiazem IV* 5 MG/ML 5 ML VIAL (for loading dose/IV Push) (25 MG) IV SLOW PU ONE (23:53)
[2016-11-04] MEDS ORDERED: Diltiazem DRIP* 100 MG/100 ML ADDV.BAG IVPB ONE (23:59)
[2016-11-05] MEDS ORDERED: NS 0.9% 100 ML* 100 ML ONE (00:18)
[2016-11-05] MEDS ORDERED: NS 0.9% IVPB SCH ×2 (00:21→08:59)
[2016-11-05] MEDS ORDERED: DILTIAZEM IVPB SCH ×2 (00:21→08:59)
[2016-11-05 05:40] LABS: BUN/Creatinine Ratio 22.6 (8-20); Calcium 9.1 mg/dL (8.6-10.3); EGFR African American 49.9 (>60); EGFR Non-African American 38.8 (>60); Potassium 3.5 mmol/L (3.5-5.0)
[2016-11-05] MEDS ORDERED: Metoprolol Tartrate TAB* 100 MG TAB PO SCH (08:31)
[2016-11-05] MEDS: Metoprolol Tartrate TAB* 50 mg PO SCH (09:03)
[2016-11-05 09:04] LABS: Magnesium 1.9 mg/dL (1.9-2.7)
[2016-11-05] MEDS: Spironolactone TAB* 25 MG PO SCH (09:05)
[2016-11-05] MEDS: Furosemide IV* 10 MG/ML VIAL (40 MG) IV SCH (09:05)
[2016-11-05] MEDS: Potassium Chlor TAB* 20 MEQ TAB.ER PO SCH ×2 (09:10→10:56)
[2016-11-05] MEDS: Apixaban* 5 MG TAB PO SCH ×2 (09:10→21:01)
[2016-11-05] MEDS ORDERED: Diltiazem DRIP* 100 MG/100 ML ADDV.BAG IVPB SCH (10:00)
[2016-11-05] MEDS ORDERED: Magnesium Oxide TAB* 400 MG PO ONE (10:25)
--- NOTE | 2016-11-05 10:48 | PN ---
Subjective Date of Service: 11/05/16 Interval History: Overnight events noted, AFib with RVR, started on Diltiazem gtt. Hypotensive this morning with HRs still elevated. Patient seen this morning, has been largely asymptomatic. Has had no dizziness/ light-headedness, chest pain, SOB, palpitations. No problems moving from bed to chair. Tolerated her breakfast with no problem. Family History: Unchanged from Admission Social History: Unchanged from Admission Past Medical History: Unchanged from Admission Objective Active Medications: Apixaban (Eliquis*) 5 mg PO BID [facility] Furosemide (Lasix Iv*) 40 mg IV DAILY [facility] Diltiazem HCl (Cardizem Iv Advan*) 100 mg in 100 mls @ 7.5 mls/hr IVPB .PER RATE [facility] Metoprolol Tartrate (Lopressor Tab*) 100 mg PO BID WITH MEALS [facility] Potassium Chloride (Klor Con Er Tab*) 20 meq PO Q2H [facility] Spironolactone (Aldactone Tab*) 25 mg PO DAILY [facility] Vital Signs 11/04/16 11/04/16 11/04/16 11:50 11:59 15:30 Temperature 98.1 F 97.7 F Pulse Rate 48 50 53 Respiratory 16 19 Rate Blood Pressure 114/30 116/41 114/39 (mmHg) O2 Sat by Pulse 92 97 100 Oximetry 11/05/16 11/05/16 11/05/16 05:00 05:29 05:43 Temperature Pulse Rate 104 108 116 Respiratory 19 19 18 Rate Blood Pressure 96/62 99/61 111/67 (mmHg) O2 Sat by Pulse 96 92 98 Oximetry 11/05/16 11/05/16 11/05/16 09:20 09:21 09:25 Temperature Pulse Rate 121 126 Respiratory 20 20 Rate Blood Pressure 97/51 86/55 92/41 (mmHg) O2 Sat by Pulse 96 96 Oximetry 11/05/16 11/05/16 11/05/16 09:30 09:35 09:41 Temperature Pulse Rate 98 109 113 Respiratory 20 19 18 Rate Blood Pressure 99/53 88/33 78/45 (mmHg) O2 Sat by Pulse 96 97 97 Oximetry 11/05/16 09:45 Temperature Pulse Rate 110 Respiratory 17 Rate Blood Pressure 90/49 (mmHg) O2 Sat by Pulse 96 Oximetry Oxygen Devices in Use Now: Nasal Cannula - 3L Appearance: Elderly, F, sitting in chair in NAD Eyes: No Scleral Icterus Ears/Nose/Mouth/Throat: Mucous Membranes Moist Neck: NL Appearance and Movements; NL JVP Respiratory: Symmetrical Chest Expansion and Respiratory Effort, Clear to Auscultation Cardiovascular: - - Tachycardic, IRIR, no m/g/r Abdominal: NL Sounds; No Tenderness; No Distention Lymphatic: No Cervical Adenopathy Extremities: No Edema Skin: No Rash or Ulcers Neurological: Alert and Oriented x 3 Result Diagrams: 11/03/16 06:16 11/05/16 05:05 Additional Lab and Data: Assess/Plan/Problems-Billing Assessment: Acute on chronic diastolic CHF exacerbation in a 75 yo F with hx of HFpEF, HTN, AFib on AC, recent L retinal artery branch occlusion - Patient Problems (1) Afib Current Visit: Yes Comment: Became tachycardic overnight, now on Diltiazem gtt. May have been 2/2 reduction in metoprolol due to bradycardia and possibly over-diuresis. BPs soft, decreased gtt to 7.5 mg/hr. Continue to monitor BPs closely, may need some fluid back. If unable to control HR and BP may need to consider Digoxin. Continue eliquis. (2) Acute on chronic diastolic (congestive) heart failure Current Visit: Yes Comment: Holding Lasix and Spironolactone this morning. Echo relatively unremarkable, EF preserved. (3) HTN (hypertension) Current Visit: Yes Comment: Medications as above (4) DVT prophylaxis Current Visit: Yes Comment: Eliquis (5) DNR (do not resuscitate) Current Visit: Yes Status and Disposition: Discharge pending control of AFib and normalization of BPs
[2016-11-05] MEDS ORDERED: Metoprolol Tartrate TAB* 25 MG PO ONE (14:21)
[2016-11-05] MEDS: Metoprolol Tartrate TAB* 25 MG PO SCH (19:17)
--- NOTE | 2016-11-05 19:29 | PN ---
Hospitalist Progress Note Patient had possible NSVT on tele around 1900. Cardizem gtt stopped as per protocol. HR remained in 90s-110s off of gtt. Will give PM Metoprolol early and try to keep off gtt overnight.
[2016-11-06] MEDS: Metoprolol Tartrate TAB* 25 MG PO SCH ×3 (02:02→15:01)
[2016-11-06] MEDS: Furosemide IV* 10 MG/ML VIAL (40 MG) IV SCH (07:51)
[2016-11-06] MEDS: Apixaban* 5 MG TAB PO SCH ×2 (07:51→20:12)
[2016-11-06] MEDS ORDERED: Digoxin IV* 0.5 MG/2 ML AMP (0.25 MG/ML) IV SLOW PU ONE ×2 (08:32→16:55)
[2016-11-06] MEDS ORDERED: Metoprolol Tartrate TAB* 25 MG PO ONE (15:23)
--- NOTE | 2016-11-06 16:57 | PN ---
Subjective Date of Service: 11/06/16 Interval History: Patient seen this afternoon. Says she continues to feel good, no SOB, wants to go home. Denies chest pain. Family History: Unchanged from Admission Social History: Unchanged from Admission Past Medical History: Unchanged from Admission Objective Active Medications: Apixaban (Eliquis*) 5 mg PO BID [facility] Last Admin: 11/06/16 07:51 Dose: 5 mg Furosemide (Lasix Iv*) 40 mg IV DAILY [facility] Last Admin: 11/06/16 07:51 Dose: 40 mg Metoprolol Tartrate (Lopressor Tab*) 50 mg PO Q6H [facility] Vital Signs 11/05/16 11/05/16 11/05/16 17:00 18:00 19:00 Temperature Pulse Rate 115 91 116 Respiratory 22 16 21 Rate Blood Pressure 93/58 109/51 97/59 (mmHg) O2 Sat by Pulse 91 91 93 Oximetry 11/06/16 11/06/16 11/06/16 00:00 00:10 00:33 Temperature Pulse Rate 112 105 Respiratory 18 14 Rate Blood Pressure 87/58 (mmHg) O2 Sat by Pulse 93 93 96 Oximetry 11/06/16 11/06/16 11/06/16 13:00 14:00 15:00 Temperature Pulse Rate 117 126 Respiratory 17 18 19 Rate Blood Pressure 102/53 92/43 114/60 (mmHg) O2 Sat by Pulse 93 96 Oximetry 11/06/16 11/06/16 15:32 16:00 Temperature 98.3 F Pulse Rate 118 Respiratory 18 17 Rate Blood Pressure 117/56 (mmHg) O2 Sat by Pulse 93 Oximetry Oxygen Devices in Use Now: Simple Face Mask Appearance: Elderly, F, sitting in chair in NAD Eyes: No Scleral Icterus Ears/Nose/Mouth/Throat: NL Teeth, Lips, Gums Neck: NL Appearance and Movements; NL JVP Respiratory: Symmetrical Chest Expansion and Respiratory Effort, Clear to Auscultation Cardiovascular: - - IRIR, tachycardic Abdominal: NL Sounds; No Tenderness; No Distention Lymphatic: No Cervical Adenopathy Extremities: No Edema Skin: No Rash or Ulcers Neurological: Alert and Oriented x 3 Result Diagrams: 11/03/16 06:16 11/05/16 05:05 Additional Lab and Data: Assess/Plan/Problems-Billing Assessment: Acute on chronic diastolic CHF exacerbation in a 75 yo F with hx of HFpEF, HTN, AFib on AC, recent L retinal artery branch occlusion - Patient Problems (1) Afib Current Visit: Yes Comment: Continued to be tachycardic overnight and this AM , gave IV Digoxin 500 mcg and will give another 250 mcg now. Get level in AM. Increased Metoprolol to 50 q6h (essentially home dose). Continue eliquis. (2) Acute on chronic diastolic (congestive) heart failure Current Visit: Yes Comment: Holding Lasix and Spironolactone this morning. Echo relatively unremarkable, EF preserved. (3) HTN (hypertension) Current Visit: Yes Comment: Medications as above (4) DVT prophylaxis Current Visit: Yes Comment: Eliquis (5) DNR (do not resuscitate) Current Visit: Yes Status and Disposition: Discharge pending control of AFib and normalization of BPs
[2016-11-06] MEDS: Metoprolol Tartrate TAB* 50 mg PO SCH (20:12)
[2016-11-07] MEDS: Metoprolol Tartrate TAB* 50 mg PO SCH ×4 (01:52→20:21)
[2016-11-07] MEDS: Apixaban* 5 MG TAB PO SCH ×2 (07:51→20:21)
[2016-11-07] MEDS: Furosemide IV* 10 MG/ML VIAL (40 MG) IV SCH (07:52)
--- NOTE | 2016-11-07 13:53 | PN ---
Subjective Date of Service: 11/07/16 Interval History: Patient seen and examined at bedside. Pt states that she feels well, but continues to need O2. Pt is concerned about going home with O2 as she has an inside wood stove. Denies fever, chills, shortness of breath, chest discomfort, N/V/D. Tele: Afib, rate 60-100's. Family History: Unchanged from Admission Social History: Unchanged from Admission Past Medical History: Unchanged from Admission Objective Active Medications: Apixaban (Eliquis*) 5 mg PO BID [facility] Furosemide (Lasix Iv*) 40 mg IV DAILY [facility] Metoprolol Tartrate (Lopressor Tab*) 50 mg PO Q6H [facility] Vital Signs 11/06/16 11/06/16 11/06/16 14:00 15:00 15:32 Temperature 98.3 F Pulse Rate 117 126 Respiratory 18 19 18 Rate Blood Pressure 92/43 114/60 (mmHg) O2 Sat by Pulse 93 96 Oximetry 11/06/16 11/06/16 11/06/16 16:00 17:00 17:22 Temperature Pulse Rate 118 105 113 Respiratory 17 20 Rate Blood Pressure 117/56 111/43 (mmHg) O2 Sat by Pulse 93 91 Oximetry 11/06/16 11/06/16 11/06/16 18:00 19:00 19:46 Temperature 98.9 F Pulse Rate 107 97 Respiratory 20 18 Rate Blood Pressure 90/49 77/33 (mmHg) O2 Sat by Pulse 92 91 Oximetry 11/06/16 11/06/16 11/06/16 19:53 19:56 20:00 Temperature Pulse Rate 90 91 Respiratory 15 16 16 Rate Blood Pressure 93/41 101/34 (mmHg) O2 Sat by Pulse 89 92 Oximetry 11/06/16 11/06/16 11/06/16 21:00 22:00 23:00 Temperature Pulse Rate 88 80 89 Respiratory 16 14 15 Rate Blood Pressure 118/51 120/71 98/40 (mmHg) O2 Sat by Pulse 94 96 93 Oximetry 11/06/16 11/06/16 11/07/16 23:30 23:38 00:00 Temperature 98.0 F Pulse Rate 85 Respiratory 14 14 Rate Blood Pressure 90/45 (mmHg) O2 Sat by Pulse 96 Oximetry 11/07/16 11/07/16 11/07/16 02:22 03:09 07:23 Temperature 97.8 F 98.6 F Pulse Rate 83 88 Respiratory 20 18 Rate Blood Pressure 115/50 97/34 (mmHg) O2 Sat by Pulse 92 95 94 Oximetry 11/07/16 11/07/16 08:00 11:25 Temperature 98.0 F Pulse Rate 74 Respiratory 18 18 Rate Blood Pressure 82/55 (mmHg) O2 Sat by Pulse 99 Oximetry Oxygen Devices in Use Now: Simple Face Mask - 3 L Appearance: NAD, sitting on the side of the bed. Eyes: No Scleral Icterus, PERRLA Ears/Nose/Mouth/Throat: NL Teeth, Lips, Gums, Mucous Membranes Moist Neck: NL Appearance and Movements; NL JVP, Trachea Midline Respiratory: Symmetrical Chest Expansion and Respiratory Effort, Clear to Auscultation Cardiovascular: - - Heart rate irregular Abdominal: NL Sounds; No Tenderness; No Distention Extremities: No Edema Skin: No Rash or Ulcers Neurological: Alert and Oriented x 3, NL Muscle Strength and Tone Lines/Tubes/Other Access: Clean, Dry and Intact Peripheral IV - site benign Nutrition: Taking PO's Result Diagrams: 11/03/16 06:16 11/05/16 05:05 Additional Lab and Data: Assess/Plan/Problems-Billing Assessment: Ms. Alvarez is a 75 yo F with hx of HF and a preserved EF, HTN, AFib on AC, recent L retinal artery branch occlusion who presented to the emergency room shortness of breath and decreased exercise tolerance who was found to have Acute on chronic diastolic CHF exacerbation. - Patient Problems (1) Acute on chronic diastolic (congestive) heart failure Code(s): I50.33 - ACUTE ON CHRONIC DIASTOLIC (CONGESTIVE) HEART FAILURE SNOMED Code(s): 931845093 Comment: Received IV Lasix this AM. Holding Spironolactone. Echo relatively unremarkable, EF preserved. Continue to work on weaning O2. (2) Afib Code(s): I48.91 - UNSPECIFIED ATRIAL FIBRILLATION SNOMED Code(s): 26000724 Comment: Tachycardic resolved. Continue Metoprolol to 50 q6h (essentially home dose) and eliquis. (3) HTN (hypertension) Code(s): I10 - ESSENTIAL (PRIMARY) HYPERTENSION SNOMED Code(s): 28644803 Comment: SBP soft, continue metoprolol. (4) DVT prophylaxis Code(s): VTO1440 - SNOMED Code(s): 938430549 Comment: [place] (5) DNR (do not resuscitate) Status and Disposition: Inpatient. Discharge pending control of AFib and normalization of BPs. Will attempt to wean O2 overnight and plan for possible discharge to home in the morning.
[2016-11-08] MEDS: Metoprolol Tartrate TAB* 50 mg PO SCH ×3 (01:56→13:34)
[2016-11-08 07:37] VITALS: BP 108/48
[2016-11-08] MEDS: Apixaban* 5 MG TAB PO SCH (08:22)
[2016-11-08] MEDS ORDERED: Furosemide TAB* 20 MG PO SCH (09:00)
--- NOTE | 2016-11-08 10:07 | PN ---
Subjective Date of Service: 11/08/16 Interval History: Patient seen and examined at bedside. Pt states that she is feeling well today and is anxious to get home. Denies fever, chills, shortness of breath, chest discomfort, N/V/D. Tele: Afib, rate 70-80's. A few 2 sec and less pauses noted on tele. Family History: Unchanged from Admission Social History: Unchanged from Admission Past Medical History: Unchanged from Admission Objective Active Medications: Apixaban (Eliquis*) 5 mg PO BID [facility] Furosemide (Lasix Tab*) 20 mg PO DAILY [facility] Metoprolol Tartrate (Lopressor Tab*) 50 mg PO Q6H [facility] Vital Signs 11/07/16 11/07/16 11/07/16 11:25 16:33 19:46 Temperature 98.0 F 98.5 F 97.7 F Pulse Rate 74 80 83 Respiratory 18 16 16 Rate Blood Pressure 82/55 113/50 121/58 (mmHg) O2 Sat by Pulse 99 91 89 Oximetry 11/07/16 11/07/16 11/08/16 20:00 23:47 00:24 Temperature 97.6 F Pulse Rate 46 Respiratory 16 16 Rate Blood Pressure 127/50 (mmHg) O2 Sat by Pulse 95 88 Oximetry 11/08/16 11/08/16 11/08/16 01:56 03:05 07:32 Temperature 97.3 F 97.3 F Pulse Rate 58 63 67 Respiratory 16 16 Rate Blood Pressure 104/39 110/64 108/48 (mmHg) O2 Sat by Pulse 90 90 94 Oximetry 11/08/16 08:00 Temperature Pulse Rate Respiratory 16 Rate Blood Pressure (mmHg) O2 Sat by Pulse Oximetry Oxygen Devices in Use Now: None Appearance: NAD, laying in bed. Eyes: No Scleral Icterus, PERRLA Ears/Nose/Mouth/Throat: NL Teeth, Lips, Gums, Mucous Membranes Moist Neck: NL Appearance and Movements; NL JVP, Trachea Midline Respiratory: Symmetrical Chest Expansion and Respiratory Effort, Clear to Auscultation Cardiovascular: NL Sounds; No Murmurs; No JVD, RRR Abdominal: NL Sounds; No Tenderness; No Distention Extremities: No Edema Skin: No Rash or Ulcers Neurological: Alert and Oriented x 3, NL Muscle Strength and Tone Lines/Tubes/Other Access: Clean, Dry and Intact Peripheral IV - site benign. Result Diagrams: 11/03/16 06:16 11/05/16 05:05 Additional Lab and Data: Assess/Plan/Problems-Billing Assessment: Ms. Alvarez is a 75 yo F with hx of HF and a preserved EF, HTN, AFib on AC, recent L retinal artery branch occlusion who presented to the emergency room shortness of breath and decreased exercise tolerance who was found to have Acute on chronic diastolic CHF exacerbation. - Patient Problems (1) Acute on chronic diastolic (congestive) heart failure Code(s): I50.33 - ACUTE ON CHRONIC DIASTOLIC (CONGESTIVE) HEART FAILURE SNOMED Code(s): 441556486 Comment: Received PO Lasix this AM. Echo relatively unremarkable, EF preserved. Weaned off O2 (2) Afib Code(s): I48.91 - UNSPECIFIED ATRIAL FIBRILLATION SNOMED Code(s): 02576033 Comment: Tachycardic resolved. Continue Metoprolol change to home dose 100 mg BID and eliquis. (3) HTN (hypertension) Code(s): I10 - ESSENTIAL (PRIMARY) HYPERTENSION SNOMED Code(s): 21902454 Comment: - SBP soft, continue metoprolol. - Hold Norvasc (4) DVT prophylaxis Code(s): QFY9608 - SNOMED Code(s): 276621014 Comment: Eliquis (5) DNR (do not resuscitate) Status and Disposition: Inpatient. Stable for discharge to home today.
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
== END 2016-11-08 13:43 | disposition home or self-care (01) | DRG 292 ==
LOC: ED 06:17 → MEDTELE 11:34 → OBSVTOIN 11-03 18:02
PROVIDERS: ADMIT Internal Medicine; ATTEND Internal Medicine
DX: I11.0 Hypertensive heart disease with heart failure (principal); I47.1 Supraventricular tachycardia; I48.91 Unspecified atrial fibrillation; Z79.01 Long term (current) use of anticoagulants; I50.33 Acute on chronic diastolic (congestive) heart failure; R82.90 Unspecified abnormal findings in urine; G47.33 Obstructive sleep apnea (adult) (pediatric); Z66 Do not resuscitate; Z79.899 Other long term (current) drug therapy
CPT/HCPCS: 36415; 71010; 80048; 80053; 80162; 81003; 81015; 82550; 82553; 83605; 83690; 83735; 83880; 84145; 84443; 84484; 85025; 85379; 85610; 85730; 86140; 93005; 93306; 94640; 94760; A9270-GY; G0378; J1160; J1940; J3490